=== PATIENT | male | born 1955 | race Caucasian/White ===

== ENCOUNTER 2017-10-02 10:44 | Emergency (ER) | payer MEDICARE, SELFPAY ==
[2017-10-02 10:45] VITALS: BP 152/118; PULSE 110; RESP 18; TEMP 36.6; O2SAT 98; BMI 22.8
--- NOTE | 2017-10-02 11:03 | RAD_ITS ---
STUDY: X-RAY - RIGHT ANKLE REASON FOR EXAM: Male, 62 years old. Injury, pain and swelling. TECHNIQUE: 3 view(s) of the ankle. COMPARISON: None. FINDINGS: There is an oblique slightly displaced appears to be comminuted fracture of the distal fibula. There is a transverse nondisplaced fracture of the medial malleolus. There is fracture of the posterior distal tibia seen only on the lateral view. Normal tibiotalar articulation and ankle mortise. Normal visualized talus and calcaneus. The visualized subtalar, talonavicular, calcaneocuboid and tarsal articulations are normal. There is mild soft tissue swelling. RAD/Ankle min 3 Views IMPRESSION: Trimalleolar fractures as described above. Electronically Signed: Tony Ang MD at 11:19 EST Tel , Service support ,
--- NOTE | 2017-10-02 11:25 | ED.VISSUMM ---
- ER Visit Summary Date of Service: 10/02/17 Chief Complaint: [Injury right ankle] History of Present Illness: The patient is a 62 M [presents with an injury to the right ankle after sustaining a fall this morning. Patient states that he stepped outside to throw some coffee grounds into the mulch bed when he slipped on a wet rug and fell. Patient is able to bear some weight but very painful. Patient did drive himself in and ambulated to the department. Patient also sustained abrasions to his left forearm and right knee. Patient is up-to-date on tetanus.] Physical Examination: [HEENT-PERRLA, EOMI. Cranial nerves II through XII grossly intact. TMs clear. Mucous membranes moist. No adenopathy. Cardiovascular-regular rate and rhythm without murmur or ectopy Lungs-clear to auscultation, chest wall stable without crepitus or subcu emphysema Abdomen-normoactive bowel sounds, soft, nontender, no rebound or rigidity, no peritoneal signs. Extremities-intact ?4, normal range of motion, normal pulses. Patient has superficial abrasions left forearm without bony tenderness. Patient has an abrasion to his right knee infrapatellar that is slightly tender but no bony tenderness. Patient has obvious soft tissue swelling and deformity to the right ankle. There is ecchymosis and bruising. He has no pain at the base of the fifth metatarsal or proximal fibular head. Test Results: [X-rays of the right ankle obtained showed trimalleolar fracture.] Emergency Department Course and Treatment: [Patient was placed in a short leg splint and case was discussed with Dr. Levi Baez who is on-call for orthopedics.] Treatment Plan: [Patient will be given crutches and a prescription for [place] for pain] Disposition: [Discharge to home in stable condition. Patient advised to ice and elevate the extremity. Patient advised to return if worsening pain increase swelling, or condition should worsen in any way.] Impression: [Trimalleolar fracture of the right ankle status post mechanical fall Abrasions left forearm Abrasion right knee] This note was generated with [employer] software. It may contain incorrect words, spelling, and punctuation that were not noted in review of the chart prior to signing ED Disposition - Plan for ED Patient: Chief Complaint: Lower Extremity Injury
--- NOTE | 2017-10-02 11:31 | ED.DCSUM_ITS ---
- ER Visit Summary Date of Service: 10/02/17 Chief Complaint: [Injury right ankle] History of Present Illness: The patient is a 62 M [presents with an injury to the right ankle after sustaining a fall this morning. Patient states that he stepped outside to throw some coffee grounds into the mulch bed when he slipped on a wet rug and fell. Patient is able to bear some weight but very painful. Patient did drive himself in and ambulated to the department. Patient also sustained abrasions to his left forearm and right knee. Patient is up-to-date on tetanus.] Physical Examination: [HEENT-PERRLA, EOMI. Cranial nerves II through XII grossly intact. TMs clear. Mucous membranes moist. No adenopathy. Cardiovascular-regular rate and rhythm without murmur or ectopy Lungs-clear to auscultation, chest wall stable without crepitus or subcu emphysema Abdomen-normoactive bowel sounds, soft, nontender, no rebound or rigidity, no peritoneal signs. Extremities-intact ?4, normal range of motion, normal pulses. Patient has superficial abrasions left forearm without bony tenderness. Patient has an abrasion to his right knee infrapatellar that is slightly tender but no bony tenderness. Patient has obvious soft tissue swelling and deformity to the right ankle. There is ecchymosis and bruising. He has no pain at the base of the fifth metatarsal or proximal fibular head. Test Results: [X-rays of the right ankle obtained showed trimalleolar fracture.] Emergency Department Course and Treatment: [Patient was placed in a short leg splint and case was discussed with Dr. Levi Baez who is on-call for orthopedics.] Treatment Plan: [Patient will be given crutches and a prescription for [place] for pain] Disposition: [Discharge to home in stable condition. Patient advised to ice and elevate the extremity. Patient advised to return if worsening pain increase swelling, or condition should worsen in any way.] Impression: [Trimalleolar fracture of the right ankle status post mechanical fall Abrasions left forearm Abrasion right knee] This note was generated with [employer] software. It may contain incorrect words, spelling, and punctuation that were not noted in review of the chart prior to signing ED Disposition - Plan for ED Patient: Chief Complaint: Lower Extremity Injury
--- NOTE | 2017-10-02 11:33 | DCINST.ED_ITS ---
ED Disposition - Plan for ED Patient: Chief Complaint: Lower Extremity Injury Instructions: ED Fx Ankle General Prescriptions: Hydrocodone Bitart/Apap 5-325 [[place] 5/325] 1 - 2 tab PO Q4H PRN PRN 5 Days #20 tab PRN Reason: Pain Referrals: Oliverio Baez MD [STAFF PHYSICIAN] - 3-5 Days
[2017-10-02] MEDS: HYDROcodone Bitartrate/Apap 5/325 Tablet PO (11:44)
[2017-10-02 11:45] VITALS: BP 163/93; PULSE 81; RESP 15; O2SAT 95
== END 2017-10-02 11:58 | disposition home or self-care (01) ==
PROVIDERS: Emergency Provider Emergency Medicine
DX: S82.851A Displaced trimalleolar fracture of right lower leg, initial encounter for closed fracture (principal); S50.812A Abrasion of left forearm, initial encounter; S80.211A Abrasion, right knee, initial encounter; W01.0XXA Fall on same level from slipping, tripping and stumbling without subsequent striking against object, initial encounter; Y93.9 Activity, unspecified; Y92.9 Unspecified place or not applicable; Y99.9 Unspecified external cause status; J44.9 Chronic obstructive pulmonary disease, unspecified; M19.90 Unspecified osteoarthritis, unspecified site
CPT/HCPCS: 29515; 73610; 99284

== ENCOUNTER → 2023-11-05 | Outpatient (CLI) | payer OTHER, SELFPAY ==
--- NOTE | 2023-11-05 15:48 | CT_ITS ---
STUDY: CT Chest W/O Contrast Injection 11/07/2023 7:24 PM REASON FOR EXAM: Male, 68 years old. SOB COUGH Individualized dose optimization techniques were used for this CT. TECHNIQUE: Transaxial imaging was performed without contrast material. COMPARISON: None. FINDINGS: There are degenerative changes of the shoulders. There is no pneumothorax. There is no demonstrated pleural abnormality. Pulmonary emphysema. No discrete nodules. There are calcifications of the coronary arteries. Normal mediastinum. Normal hilar regions. Normal pulmonary arteries. There is atherosclerotic calcification of the aortic arch with tortuosity and elongation of the aortic arch and descending thoracic aorta. There are multi-level degenerative changes of the thoracic spine. There are no acute findings of the upper abdomen. CT/Chest without Contrast IMPRESSION: There are calcifications of the coronary arteries. Electronically Signed: Isidoro Dixon MD at 19:26 EDT ,
== END | disposition home or self-care (01) ==
LOC: CT 15:48
DX: R06.02 Shortness of breath (principal); J44.9 Chronic obstructive pulmonary disease, unspecified; R05.9 Cough, unspecified
CPT/HCPCS: 71250

== ENCOUNTER 2025-02-03 22:11 | Emergency (ER) | payer OTHER, SELFPAY ==
[2025-02-03 22:13] VITALS: BP 195/119; PULSE 92; RESP 15; TEMP 36.9; O2SAT 94; BMI 25.7
[2025-02-03 22:16] VITALS: BP 195/119; PULSE 101; RESP 15; TEMP 36.9; O2SAT 94
--- NOTE | 2025-02-03 22:36 | CT_ITS ---
PROCEDURE: ABDOMEN/PELVIS W IV CONT ONLY 02/03/2025 REASON FOR EXAM: LLQ PAIN TECHNIQUE: ABDOMEN/PELVIS W IV CONT ONLY Coronal and Sagittal reconstruction series were provided. CONTRAST: Isovue 370 VOLUME: 100 mL One or more dose reduction techniques were used (e.g., Automated exposure control, adjustment of the mA and/or kV according to patient size, use of iterative reconstruction technique. RADIATION DOSE SUMMARY: DLP: 434 mGycm COMPARISON: None. FINDINGS: Lung bases: Bibasilar emphysema with scattered areas of scarring. Right lower lobe ground-glass opacities. Bibasilar pulmonary nodules, greatest in the right lower lobe. Liver: The liver is normal in size without suspicious hepatic mass. The major portal veins are patent. No biliary ductal dilation. Gallbladder: No radiopaque stones within the gallbladder. Spleen: Normal size. Pancreas: Unremarkable. Adrenals: Bilateral adrenal hyperplasia. No discrete nodule. Kidneys: Nonobstructing right renal calculus. Obstructing stone within the left mid ureter at the crossing of the vessels, measuring 0.6 cm (coronal image 72). Mild left hydroureteronephrosis with delayed nephrogram. Bladder: Distended and unremarkable. Reproductive Organs: Dystrophic calcifications within the prostate. Bowel: The bowel loops are nondilated. No ascites or pneumoperitoneum. Normal appendix. Lymph nodes: No suspicious lymph node enlargement. Vasculature: Severe mixed calcific plaque of the aortoiliac vessels. Bones: Thoracolumbar spondylosis with scoliosis of the lumbar spine. CT/Abdomen/Pelvis W IV Cont ONLY IMPRESSION: 1. Obstructing stone within the left mid ureter with mild hydroureteronephrosis and delayed nephrogram. 2. Ground-glass opacities within the right lower lobe, which may reflect pneumo nitis/pneumonia. Clinical correlation recommended. 3. Bibasilar pulmonary nodules. Follow-up with outpatient private inquiry agent recomm ended if not currently performed. Reading Location: [id number]
--- OUTSIDE RECORDS SUMMARY | 2025-02-03 22:42 | XMS RPT_ITS | CCD ---
Author Organization [facility] Care Team Providers Care Correctional Security Officer Name Role Phone CIERA LAMAR Unavailable Unavailable [facility] Primary Care Physician [facility] Primary Care Unavailable LASHAWN SULTANA Attending Unavailable GEOVANNA BALL Attending Unavailable GEOVANNA BALL Referring [facility] Unavailable Allergies Allergy Classification Reported Allergen(s) Allergy Type Date of Onset Reaction(s) Facility (1 source) Codeine Drug Allergy 10-02-2017 [facility] Repository (1 source) Codeine Drug Allergy 10-02-2017 Other [facility] Medications Current Medications Medication Drug Class(es) Dates Sig (Normalized) Sig (Original) acetaminophen 325 mg / HYDROcodone bitartrate 5 mg oral tablet (1 source) Opioid Agonist Start: 10-02-2017 take 1 tablet by mouth every four hours as needed Hydrocodone-Aceta minophen Active 1 - 2 TABLET PO EVERY 4 HOURS NEEDED 20 October 02, 2017 1:00am Problems Problem Classification Problem Date Documented Da te Episodic/Chronic Other lower respiratory disease (1 source) Other nonspecific abnormal finding of lung field; Translations: [Other nonspecific abnormal finding of lung field] Onset: 11-05-2023 Episodic Unclassified (1 source) Unknown / UNK(Unknown) Onset: 05-19-2017 Results Test Name Value Interpretation Reference Range Facility Chest without Contraston Chest without Contrast [facility] [address] [place] [address] Chest without Contrast MR#: [id number] Acct: [id number] Name: LOPEZ ROY III Rep #: [id number] : 1955 M 68 From: Isidoro Hamilton PCP: [place] Hospital Status: REG CLI Study: Chest without Contrast Date of Exam: 11/05/23 Exam# [id number] Ordering Dr: LUCRECIA RAMAN :[id number] STUDY: CT Chest W/O Contrast Injection 11/07/2023 7:24 PM REASON FOR EXAM: Male, 68 years old. SOB COUGH Individualized dose optimization techniques were used for this CT. TECHNIQUE: Transaxial imaging was performed without contrast material. COMPARISON: None. FINDINGS: There are degenerative changes of the shoulders. There is no pneumothorax. There is no demonstrated pleural abnormality. Pulmonary emphysema. No discrete nodules. There are calcifications of the coronary arteries. Normal mediastinum. Normal hilar regions. Normal pulmonary arteries. There is atherosclerotic calcification of the aortic arch with tortuosity and elongation of the aortic arch and descending thoracic aorta. There are multi-level degenerative changes of the thoracic spine. There are no acute findings of the upper abdomen. CT/Chest without Contrast IMPRESSION: There are calcifications of the coronary arteries. Electronically Signed: Isidoro Dixon MD at 19:26 EDT Reading Location ID and State: [facility] / [place] , Service support , CC: LUCRECIA RAMAN; [facility] Roller Picker: Signed Normal [facility] .Auto Diffon 10-12-2022 Basophil, Absolute 0.1 10 3/mcL Normal 0.0-0.3 Pending sale to [facility] ([place]) Comment on above: Performed By: #### A DIFF, BMP, CBC, GFR, CLAUDIA CLEMENTE MDW #### [facility] [address] [place] [address] Basophils/100 WBC (Bld) 0.6 % Normal 0.0-2.5 [facility] ([place]) Comment on above: Performed By: #### A DIFF, BMP, CBC, GFR, CLAUDIA CLEMENTE MDW #### [address] [address] Eosinophil, Absolute 0.1 10 3/mcL Normal 0.0-0.7 [facility] ([place]) Comment on above: Performed By: #### A DIFF, BMP, CBC, GFR, ANEUCLAUDIA MDW #### [address] [address] Eosinophils/100 WBC (Bld) 1.0 % Normal 0.0-6.0 [facility] ([place]) Comment on above: Performed By: #### A DIFF, BMP, CBC, GFR, CLAUDIA CLEMENTE MDW #### [address] [address] Lymphocyte, Absolute 0.5 10 3/mcL Low 0.9-4.3 [facility] ([place]) Comment on above: Performed By: #### A DIFF, BMP, CBC, GFR, CLAUDIA CLEMENTE MDW #### [address] [address] Lymphocytes/100 WBC (Bld) 5.9 % Low 20.0-40.0 [facility] ([place]) Comment on above: Performed By: #### A DIFF, BMP, CBC, GFR, CLAUDIA CLEMENTE MDW #### [address] [address] Monocyte, Absolute 0.8 10 3/mcL Normal 0.1-1.4 Pending sale to [facility] ([place]) Comment on above: Performed By: #### A DIFF, BMP, CBC, GFR, CLAUDIA CLEMENTE MDW #### [address] [address] Monocytes/100 WBC (Bld) 8.5 % Normal 2.0-13.0 [facility] ([place]) Comment on above: Performed By: #### A DIFF, BMP, CBC, GFR, CLAUDIA CLEMENTE MDW #### [address] [address] Neutrophils/100 WBC (Bld) 84.0 % High 50.0-75.0 [facility] ([place]) Comment on above: Performed By: #### A DIFF, BMP, CBC, GFR, CLAUDIA CLEMENTE MDW #### [address] [address] .GFRon 10-12-2022 GFR >60 Normal [facility] ([place]) Comment on above: Result Comment: GFR Population mean for , Non- Americans Ages 20-29 = 116 mL/min/1.73 sq.m. Ages 30-39 = 107 mL/min/1.73 sq.m. Ages 40-49 = 99 mL/min/1.73 sq.m. Ages 50-59 = 93 mL/min/1.73 sq.m. Ages 60-69 = 85 mL/min/1.73 sq.m. Ages 70+ = 75 mL/min/1.73 sq.m. Chronic Kidney Disease: Less than 60 mL/min/1.73 square meters End Stage Renal Disease: Less than 15 mL/min/1.73 square meters Performed By: #### A DIFF, BMP, CBC, GFR, CLAUDIA CLEMENTE MDW #### [place] [address] GFR Non- >60 Normal [facility] ([place]) Comment on above: Result Comment: GFR Population mean for , Non- Americans Ages 20-29 = 116 mL/min/1.73 sq.m. Ages 30-39 = 107 mL/min/1.73 sq.m. Ages 40-49 = 99 mL/min/1.73 sq.m. Ages 50-59 = 93 mL/min/1.73 sq.m. Ages 60-69 = 85 mL/min/1.73 sq.m. Ages 70+ = 75 mL/min/1.73 sq.m. Chronic Kidney Disease: Less than 60 mL/min/1.73 square meters End Stage Renal Disease: Less than 15 mL/min/1.73 square meters Performed By: #### A DIFF, BMP, CBC, GFR, CLAUDIA CLEMENTE MDW #### [address] [address] .MDWon 10-12-2022 Monocyte Distribution Width 16.93 Normal 0.00-20.00 [facility] ([place]) Comment on above: Result Comment: For ED adult patients suspected of sepsis, MDW<=20.0 does not rule out sepsis or risk of sepsis Performed By: #### A DIFF, BMP, CBC, GFR, CLAUDIA CLEMENTE MDW #### [address] [address] .NEUABSon 10-12-2022 Neutrophil, Absolute 7.6 10 3/mcL Normal 2.3-8.1 [facility] ([place]) Comment on above: Performed By: #### A DIFF, BMP, CBC, GFR, CLAUDIA CLEMENTE MDW #### [place] [address] BMPon 10-12-2022 BUN/Creatinine Ratio 20.0 ratio Normal 10.0-22.0 [facility] ([place]) Comment on above: Performed By: #### A DIFF, BMP, CBC, GFR, CLAUDIA CLEMENTE MDW #### [place] [address] Calcium [Mass/Vol] 10.2 mg/dL Normal 8.7-10.4 [facility] ([place]) Comment on above: Performed By: #### A DIFF, BMP, CBC, GFR, CLAUDIA CLEMENTE MDW #### [place] [address] Chloride [Moles/Vol] 103 mmol/L Normal 98-110 [facility] ([place]) Comment on above: Performed By: #### A DIFF, BMP, CBC, GFR, CLAUDIA CLEMENTE MDW #### [place] [address] CO2 [Moles/Vol] 29 mmol/L Normal 22-32 [facility] ([place]) Comment on above: Performed By: #### A DIFF, BMP, CBC, GFR, CLAUDIA CLEMENTE MDW #### [place] [address] Creatinine [Mass/Vol] 0.80 mg/dL Normal 0.60-1.40 [facility] ([place]) Comment on above: Performed By: #### A DIFF, BMP, CBC, GFR, CLAUDIA CLEMENTE MDW #### [address] [address] Electrolyte Balance 9.0 mEq/L Normal 4.0-15.0 [facility] ([place]) Comment on above: Performed By: #### A DIFF, BMP, CBC, GFR, CLAUDIA CLEMENTE MDW #### [address] [address] Glucose [Mass/Vol] 96 mg/dL Normal 82-115 [facility] ([place]) Comment on above: Performed By: #### A DIFF, BMP, CBC, GFR, CLAUDIA CLEMENTE MDW #### [address] [address] Potassium [Moles/Vol] 3.6 mmol/L Normal 3.5-5.0 [facility] ([place]) Comment on above: Performed By: #### A DIFF, BMP, CBC, GFR, CLAUDIA CLEMENTE MDW #### [place] [id number] Sodium [Moles/Vol] 141 mmol/L Normal 136-145 [facility] ([place]) Comment on above: Performed By: #### A DIFF, BMP, CBC, GFR, CLAUDIA CLEMENTE MDW #### [address] [address] Urea nitrogen [Mass/Vol] 16.0 mg/dL Normal 8.0-22.0 [facility] ([place]) Comment on above: Performed By: #### A DIFF, BMP, CBC, GFR, CLAUDIA CLEMENTE MDW #### [address] [address] CBCon 10-12-2022 Erythrocyte distribution width (RBC) [Ratio] 13.8 % Normal 11.5-15.5 [facility] ([place]) Comment on above: Performed By: #### A DIFF, BMP, CBC, GFR, CLAUDIA CLEMENTE MDW #### [address] [address] Hematocrit (Bld) [Volume fraction] 44.9 % Normal 40.0-52.0 [facility] ([place]) Comment on above: Performed By: #### A DIFF, BMP, CBC, GFR, CLAUDIA CLEMENTE MDW #### [place] [address] Hgb 15.0 G/dL Normal 13.0-17.5 [facility] ([place]) Comment on above: Performed By: #### A DIFF, BMP, CBC, GFR, CLAUDIA CLEMENTE MDW #### [place] [address] MCH (RBC) [Entitic mass] 29.5 pg Normal 27.0-33.0 [facility] ([place]) Comment on above: Performed By: #### A DIFF, BMP, CBC, GFR, CLAUDIA CLEMENTE MDW #### [place] [address] MCHC 33.4 G/dL Normal 32.0-36.0 [facility] ([place]) Comment on above: Performed By: #### A DIFF, BMP, CBC, GFR, CLAUDIA CLEMENTE MDW #### [place] [address] MCV (RBC) [Entitic vol] 88.2 fL Normal 81.0-100.0 [facility] ([place]) Comment on above: Performed By: #### A DIFF, BMP, CBC, GFR, CALUDIA CLEMENTE MDW #### [place] [address] Platelet 439 10 3/mcL Normal 150-450 [facility] ([place]) Comment on above: Performed By: #### A DIFF, BMP, CBC, GFR, CLAUDIA CLEMENTE MDW #### [place] [address] Platelet mean volume (Bld) [Entitic vol] 6.4 fL Normal 6.4-10.5 [facility] ([place]) Comment on above: Performed By: #### A DIFF, BMP, CBC, GFR, CLAUDIA CLEMENTE MDW #### [place] [address] RBC 5.09 10 6/mcL Normal 4.50-6.00 [facility] ([place]) Comment on above: Performed By: #### A DIFF, BMP, CBC, GFR, ANEU, AZIZA TAYLOR #### [place] [address] WBC 9.1 10 3/mcL Normal 4.5-10.8 [facility] ([place]) Comment on above: Performed By: #### A DIFF, BMP, CBC, GFR, ANEU, AZIZA TAYLOR #### [place] [address] CVFLURVon 10-12-2022 FLU A PCR Negative Normal Negative [facility] ([place]) Comment on above: Result Comment: Note s Performed By: #### C VFLURV #### [place] [address] FLU B PCR Negative Normal Negative [facility] ([place]) Comment on above: Result Comment: Note s Performed By: #### C VFLURV #### [place] [address] RSV PCR Negative Normal Negative [facility] ([place]) Comment on above: Result Comment: Note s Performed By: #### C VFLURV #### [place] [address] SARS-CoV-2 (COVID-19) RNA RICK+probe Ql (Unsp spec) Negative Normal Negative [facility] ([place]) Comment on above: Result Comment: Note s This test has been authorized by FDA under an EUA for use by authorized laboratories and has not been FDA cleared or approved. Results from the Xpert Xpress SARS-CoV-2/Flu/RSV or Xpert Xpress SARS-CoV-2 only test should be correlated with the clinical history, epidemiological data, and other data available to the clinician evaluating the patient. Performance of the Xpert Xpress SARS-CoV-2/Flu/RSV or Xpert Xpress SARS-CoV-2 only test has only been established in nasopharyngeal swab specimens. Erroneous test results might occur from improper specimen collection; failure to follow the recommended sample collection, handling, and storage procedures; technical error; or sample mix-up.False negative results may occur if virus is present at levels below the analytical limit of detection. Viral nucleic acid may persist in vivo, independent of virus viability. Detection of analyte target(s) does not imply that the corresponding virus(es) are infectious or are the causative agents for clinical symptoms.Recent patient exposure to FluMist or other live attenuated influenza vaccines may cause inaccurate positive results. Performed By: #### C VFLURV #### [place] [address] LABORATORYOrdered By: SYSTEM SYSTEM on 10-12-2022 Basophils (Bld) [#/Vol] 0.1 103/mcL Invalid Interpretation Code 0.0 - 0.3 10^3/mcL AH Workflow SS Basophils/100 WBC (Bld) 0.6 % Invalid Interpretation Code 0.0 - 2.5 % AH Workflow SS Calcium [Mass/Vol] 10.2 mg/dL Invalid Interpretation Code 8.7 - 10.4 mg/dL ADM SS Chloride [Moles/Vol] 103 mmol/L Invalid Interpretation Code 98 - 110 mEq/L ADM SS CO2 [Moles/Vol] 29 mmol/L Invalid Interpretation Code 22 - 32 mEq/L ADM SS Creatinine [Mass/Vol] 0.80 mg/dL Invalid Interpretation Code 0.60 - 1.40 mg/dL ADM SS Electrolyte Balance 9.0 mEq/L Invalid Interpretation Code 4.0 - 15.0 mEq/L ADM SS Eosinophils (Bld) [#/Vol] 0.1 103/mcL Invalid Interpretation Code 0.0 - 0.7 10^3/mcL AH Workflow SS Eosinophils/100 WBC (Bld) 1.0 % Invalid Interpretation Code 0.0 - 6.0 % AH Workflow SS Erythrocyte distribution width (RBC) [Ratio] 13.8 % Invalid Interpretation Code 11.5 - 15.5 % AH Workflow SS GFR/1.73 sq M.predicted among blacks MDRD (S/P/Bld) [Vol rate/Area] ml/min/1.73sqm Invalid Interpretation Code ADM SS GFR/1.73 sq M.predicted among non-blacks MDRD (S/P/Bld) [Vol rate/Area] ml/min/1.73sqm Invalid Interpretation Code ADM SS Glucose [Mass/Vol] 96 mg/dL Invalid Interpretation Code 82 - 115 mg/dL ADM SS Hematocrit (Bld) [Volume fraction] 44.9 % Invalid Interpretation Code 40.0 - 52.0 % AH Workflow SS Hemoglobin (Bld) [Mass/Vol] 15.0 G/dL Invalid Interpretation Code 13.0 - 17.5 G/dL AH Workflow SS Lymphocytes (Bld) [#/Vol] 0.5 103/mcL Invalid Interpretation Code 0.9 - 4.3 10^3/mcL AH Workflow SS Lymphocytes/100 WBC (Bld) 5.9 % Invalid Interpretation Code 20.0 - 40.0 % AH Workflow SS MCH (RBC) [Entitic mass] 29.5 pg Invalid Interpretation Code 27.0 - 33.0 pg AH Workflow SS MCHC 33.4 G/dL Invalid Interpretation Code 32.0 - 36.0 G/dL AH Workflow SS MCV (RBC) [Entitic vol] 88.2 fL Invalid Interpretation Code 81.0 - 100.0 fL AH Workflow SS Monocyte distribution width Auto (Bld) [Entitic vol] 16.93 Invalid Interpretation Code 0.00 - 20.00 AH Workflow SS Comment on above: Result Comment: For ED adult patients suspected of sepsis, MDW<=20.0 does not rule out sepsis or risk of sepsis Monocytes (Bld) [#/Vol] 0.8 103/mcL Invalid Interpretation Code 0.1 - 1.4 10^3/mcL AH Workflow SS Monocytes/100 WBC (Bld) 8.5 % Invalid Interpretation Code 2.0 - 13.0 % AH Workflow SS Neutrophils (Bld) [#/Vol] 7.6 103/mcL Invalid Interpretation Code 2.3 - 8.1 10^3/mcL AH Workflow SS Neutrophils/100 WBC (Bld) 84.0 % Invalid Interpretation Code 50.0 - 75.0 % AH Workflow SS Platelet mean volume (Bld) [Entitic vol] 6.4 fL Invalid Interpretation Code 6.4 - 10.5 fL AH Workflow SS Platelets (Bld) [#/Vol] 439 103/mcL Invalid Interpretation Code 150 - 450 10^3/mcL AH Workflow SS Potassium [Moles/Vol] 3.6 mmol/L Invalid Interpretation Code 3.5 - 5.0 mEq/L AH ADM SS RBC (Bld) [#/Vol] 5.09 106/mcL Invalid Interpretation Code 4.50 - 6.00 10^6/mcL AH Workflow SS Sodium [Moles/Vol] 141 mmol/L Invalid Interpretation Code 136 - 145 mEq/L AH ADM SS Troponin I.cardiac DL <= 0.01 ng/mL [Mass/Vol] 3.92 ng/L Invalid Interpretation Code 0.00 - 54.00 ng/L ADM SS Urea nitrogen [Mass/Vol] 16.0 mg/dL Invalid Interpretation Code 8.0 - 22.0 mg/dL ADM SS Urea nitrogen/Creatinine [Mass ratio] 20.0 ratio Invalid Interpretation Code 10.0 - 22.0 ratio ADM SS WBC (Bld) [#/Vol] 9.1 103/mcL Invalid Interpretation Code 4.5 - 10.8 10^3/mcL Workflow SS LABORATORYOrdered By: Regine sandra on 10-12-2022 FLUAV RNA RICK+probe Ql (Resp) Negative 3 (10/12/22 5:20 PM) Invalid Interpretation Code Negative Auto Viro/Sero SS Comment on above: Result Comment: Note s FLUBV RNA RICK+probe Ql (Resp) Negative 4 (10/12/22 5:20 PM) Invalid Interpretation Code Negative Auto Viro/Sero SS Comment on above: Result Comment: Note s RSV PCR Negative 5 (10/12/22 5:20 PM) Invalid Interpretation Code Negative Auto Viro/Sero SS Comment on above: Result Comment: Note s SARS-CoV-2 (COVID-19) RNA RICK+probe Ql (Resp) Negative 2 (10/12/22 5:20 PM) Invalid Interpretation Code Negative Auto Viro/Sero SS Comment on above: Result Comment: Note s TROPHSon 10-12-2022 Troponin I High Sensitivity 3.92 ng/L Normal 0.00-54.00 [facility] ([place]) Comment on above: Result Comment: If t he High Sensitive Troponin result is below the 99th percentile value (<45 ng/L) at the first blood draw, at least two additional blood samples should be drawn before results are interpreted as negative for AMI. Performed By: #### A DIFF, BMP, CBC, GFR, ANEU, AZIZA TAYLOR #### [address] [address] XR CHEST 1 VIEWon 10-12-2022 XR CHEST 1 VIEW ORIGINAL EXAMINATION: ONE XRAY VIEW OF THE CHEST TECHNIQUE: AP upright COMPARISON: None HISTORY: ORDERING SYSTEM PROVIDED HISTORY: Reason for Exam: chest pain FINDINGS: Support devices: None Cardiomediastinal: The heart is normal in size. Lungs: Mild pulmonary hyperinflation likely on the basis of upper lobe predominant emphysema. Bilateral lower lobe parenchymal opacities without consolidation noted. No evidence of pulmonary edema or a pleural effusion. Pneumothorax: None. Osseous: No acute osseous pathology. IMPRESSION: Bilateral lower lobe parenchymal opacities. In the absence of prior imaging studies considerations include acute (infectious/inflammatory) and chronic change (fibrosis and/or interstitial lung disease). Emphysema. Interpreted by: Farhad Armando MD Preliminary Report By: Farhad Armando MD Electronically signed By Farhad Armando MD Dictated Date: 10/12/2022 3:21:37 PM Prelim Date: 10/12/2022 3:23:33 PM Sign Date: 10/12/2022 3:23:33 PM Ordering Provider: LASHAWN Block [facility] ([place]) CNOVon 05-19-2017 CN Office Visit (FAMPWS) ----LOPEZ ROY ([id number]) 1955 [facility] Time Provider [id number]/11/17 2:00 PM [facility] During your visit today, we recorded the following information about you: Pulse Respiration Blood pressure Weight 80/minute 14/minute 134/95 68 kg Height 1.715 Nav Lamar MD 05/19/2017 5:52 PM SignedWelcome To Medicare VisitMedical B eligibility date not able to findDate of last exam [place] MEDICAL HISTORYDiagnosis Date- COPD (chronic obstructive pulmonary disease) (HCC) 05/11/2017- Scoliosis 1974PAST SURGICAL HISTORYProcedure Laterality Date- COLONOSCOPY 2014 repeat 10 years- HERNIA REPAIR W/MESH Left- TENDON TRANSFER WITH GRAFT RightCodeineMedications reviewed: YesFAMILY HISTORYProblem Relation Age of Onset- Cancer Father- Diabetes Sister- Kidney Disease BrotherSOCIAL HISTORY:Social History Marital status: Spouse name: Years of education: Number of children:Social History Main Topics Smoking status: Former Smoker Packs/day: 0.00 Years: 0.00 Quit date: 02/14/2016 Drug use: Marcia works out regularly 7 times per week with walking. He watches his dietfor sodium, low fat and low cholesterol most of the time.List of current specialists seen:See VAEnd of Live Planning discussed including patients advanced directive wishes: Katie am willing to follow Lopez's advanced directives.Depression screenHe in the past two weeks denies having felt down, depressed, hopeless or withlittle interest or pleasure in doing things.Functional Ability/Safety Screen1. Was the patient's timed Up and Go test unsteady or longer than 30 seconds?No2. Does the patient need help with the phone, transportation,shopping,prep aring meals, housework, laundry, medications or managing money? No With back has some problems.3. Does your home have rugs in the hallway, lack of grab bars in the bathroom(y), lack of handrails on the stairs or have poor lighting? NoHearing Evaluation: normalPHYSICAL EXAMBP 148/95 Pulse 80 Resp 14 Ht 171.5 cm (5' 7.5ANDquot;) Wt 68 kg (150 lb) BMI 23.15 kg/i4Jhgcd and oriented X 3: YESBody mass index is 23.15 kg/(m2).Sees OpthoSee belowASSESSMENT/PLAN:61 year old maleThe following prevention plan was discussed during the office visit andprovided to the patient:See belowNate Bauer ComplaintPatient presents with:Establish Care: physicalHPLucila Alfonso Roy is a 61 year old male who presents here today forestablishment of care with extensive exam.Patient with Hx as documented below and reviewed. No issuesPast medical history, appointments, medications, allergies reviewed.Previous Medical HistoryPAST MEDICAL HISTORYDiagnosis Date- COPD (chronic obstructive pulmonary disease) (HCC) 05/11/2017- Ex-smoker 05/19/2017 Started age 16 up to 1 PPD quit at age 60- Scoliosis 1974Previous Surgical HistoryPAST SURGICAL HISTORYProcedure Laterality Date- COLONOSCOPY 2014 repeat 10 years- HERNIA REPAIR W/MESH Left- TENDON TRANSFER WITH GRAFT RightFamily HistoryFAMILY HISTORYProblem Relation Age of Onset- Cancer Father- Diabetes Sister- Kidney Disease BrotherPatient AllergiesALLERGIESAllergen Reactions- Codeine Other: See Comments Shaky, mental status changesCurrent MedicationsNo current outpatient prescriptions on file prior to visit.No current facility-administered medications on file prior to visit.Social HistorySocial History Marital status: Spouse name: Years of education: Number of children:Social History Main Topics Smoking status: Former Smoker Packs/day: 0.00 Years: 0.00 Quit date: 02/14/2016 Drug use: NoReview of SymptomsREVIEW OF SYSTEMSGENERAL: No weight loss, malaise or feversHEENT: Negative for frequent or significant headaches, significant change invision, significant vision problems, significant ear problems or hearing loss,nasal discharge, or nose bleeds, sore throat, difficulty swallowing, mouthlesions, hoarsenessNECK: Negative for lumps, goiter, pain and significant neck swellingRESPIRATORY: Negative for cough, hemoptysis. Breathing has been stable.CARDIOVASCULAR: Negative for chest pain, hypertension, CHF or palpitations.Occasional swelling in legs but resolves.GI: No nausea, vomiting, or frequent diarrhea, No heartburn or reflux symptomsand bloodGU: No history of dysuria, or bloodMUSCULOSKELETAL: has pain in the lower back and has been developing some painsin the hips.SKIN: Negative for lesions, rash, and itchingPSYCH: Negative for sleep disturbance, mood disorder and recent psychosocialstressorsHEMATOL OGY/LYMPHOLOGY: Negative for prolonged bleeding, bruising easily orswollen nodesENDOCRINE: Negative for cold or heat intolerance, polyuria, polydipsia andgoiterNEURO: No history of headaches, syncope, paralysis, seizures or tremorsEXAM:BP 148/95 Pulse 80 Resp 14 Ht 171.5 cm (5' 7.5ANDquot;) Wt 68 kg (150 lb) BMI 23.15 kg/k0Hassqay Appearance: Well appearing, alert, in no acute distress, well-hydrated,well nourished..Skin: Skin color, texture, turgor normal, no suspicious rashes or lesions.Head: Normocephalic, no masses, lesions, tenderness or abnormalities.Eyes: Anicteric sclera. Pupils are equally round and reactive to light.Extraocular movements are intact. .Ears: External ears normal, canals clear.Nose/Sinuses: Nares normal, septum midline, mucosa normal, no drainage or sinustenderness.Oropharynx: Lips, mucosa, and tongue normal, gums normal, oropharynx normal.Poor dietitian.Neck: Supple, no adenopathy; thyroid symmetric, normal size, no bruits.Lungs: Lungs clear to auscultation. No wheezing, rhonchi, rales, distant breathsounds throughout..Heart: RRR without murmur, gallop, or rubs. No ectopy.Abdomen: Normal abdominal exam, Abdomen soft, non-tender. Bowel sounds normal.No masses, organomegaly.Extremities: No deformities, edema, skin discoloration.Musculoskeleta l: Spine range of motion normal. Muscular strength intact, Nojoint swelling, deformity, or tenderness.Peripheral Pulses: Normal.Neurologic: Gait normal. Reflexes normal and symmetric. Sensation to lighttouch and crainal nerves 2-12 intact..Genitalia: Normal, Penis normal. No urethral discharge. Scrotum normal topalpation. No hernia. circumcised.Rectal: Normal exam. Prostate enlarged but firm smooth capsule.Health Maintenance ListTETANUS due on 1966LIPID SCREEN due on 1990HEPATITIS C SCREENING due on 1999DIABETES SCREEN due on 2000PROSTATE CANCER SCREENING DISCUSSION due on 2005ZOSTAVAX due on 2015COLORECTAL CANCER SCREENING,SEE MODIFIER due on 01/10/2024INFLCLAIRE CompletedData reviewedA/P(Z00.00) Medicare annual wellness visit, subsequent (primary encounterdiagnosis)Comment:P [place]: see below(J44.9) Chronic obstructive pulmonary disease, unspecified COPD type (HCC)Comment:Plan: patient to cont inhalers and f[facility] with [facility](M41.9) Scoliosis of lumbosacral spine, unspecified scoliosis typeComment:Plan: stable.(Z87.891) Ex-smokerComment:Plan: patient to continue to abstain.(N40.0) Benign prostatic hyperplasia without lower urinary tract symptomsComment:Plan: no clinically stable(Z13.6) Encounter for screening for cardiovascular disordersComment:Plan: check LIPID PANEL BASIC(Z13.1) Encounter for screening for diabetes mellitusComment:Plan: check GLUCOSE FASTING BLD(N42.9) Prostate disorderComment:Plan: check PSA/PROSTSPECAG DIAGPatient to f/u 1 year for WAE Time with patient face to face was 30 min for extensive exam and 10 min formedicare wellness.Referring Provider: SELF [[id number]]Allergies As of Date: 05/19/2017 Noted Allergy ReactionCODEINE 05/19/2017 14 - Other: See Comments Comments: Jase mental status changesDate Reviewed: 05/19/2017Reviewed by: Ciera Lamar - Fully AssessedReason for Visit: [facility] [42] Cmt: physicalPrimary Visit Diagnosis:Medicare annual wellness visit, subsequent [Z00.00] Comment:last done: 05/19/2017 Other Visit Diagnoses:Chronic obstructive pulmonary disease, unspecified COPD type (HCC) [J44.9] Scoliosis of lumbosacral spine, unspecified scoliosis type [M41.9] Ex-smoker [Z87.891] Benign prostatic hyperplasia without lower urinary tract symptoms [N40.0] Encounter for screening for cardiovascular disorders [Z13.6] Encounter for screening for diabetes mellitus [Z13.1] Prostate disorder [N42.9]Order(s):diclofenac, EC, (VOLTAREN) 75 mg EC tabletTake 1 tablet by mouth twice daily. For pain/inflammation. Take with food. Per VADisp: Rfl: 0 albuterol HFA (VENTOLIN HFA) 90 mcg/actuation inhalerInhale 2 Puffs as instructed every 4 hours as needed for Wheezing/Shortness of Breath. Per VADisp: 1 InhalerRfl: 0 tiotropium (SPIRIVA WITH HANDIHALER) 18 mcg inhalation capsuleInhale 1 capsule as instructed once daily. Use with handihaler. Per VADisp: Rfl: 0 aspirin, enteric coated (ASPIR-81) 81 mg EC tabletTake 1 tablet by mouth once daily.Disp: Rfl: 0 GLUCOSE FASTING BLD [SQGLF] Order #: [id number] FUTURE LIPID PANEL BASIC [SQLIPB] Order #: [id number] FUTURE PSA/PROSTSPECAG DIAG [SQPSA] Order #: [id number] FUTUREPrescriptions as of 05/19/2017 Sig: DICLOFENAC SODIUM 75 MG TABLE* Take 1 tablet by mouth twice * ALBUTEROL SULFATE HFA 90 MCG/* Inhale 2 Puffs as instructed * TIOTROPIUM BROMIDE 18 MCG CAP* Inhale 1 capsule as instructe* ASPIRIN 81 MG TABLET,DELAYED * Take 1 tablet by mouth once d*Problem List As Of Date 05/19/2017 Noted Resolved COPD (chronic obstructive pulmonary disease) (H*INVALID FOR* Priority: A Scoliosis [M41.9] INVALID FOR* Priority: M Ex-smoker [Z87.891] INVALID FOR* Priority: C More... Medicare annual wellness visit, subsequent [Z00*INVALID FOR* More... Well adult exam [Z00.00] INVALID FOR* More... Encounter for screening for cardiovascular diso*INVALID FOR* Benign prostatic hyperplasia without lower urin*INVALID FOR* Priority: CPrescriptions ordered this encounter Disp Refills Start End DICLOFENAC SODIUM 75 MG TABLET,DELAY* 0 05/19/2017 Class: Med Update Route: ORAL Sig: Take 1 tablet by mouth twice daily. For pain/inflammation. Take with food. Per CA ALBUTEROL SULFATE HFA 90 MCG/ACTUATI* 1 In* 0 05/19/2017 Class: Med Update Route: INHALATION Sig: Inhale 2 Puffs as instructed every 4 hours as needed for Wheezing/Shortness of Breath. Per CA TIOTROPIUM BROMIDE 18 MCG CAPSULE WI* 0 05/19/2017 Class: Med Update Route: INHALATION Sig: Inhale 1 capsule as instructed once daily. Use with handihaler. Per [facility] ASPIRIN 81 MG TABLET,DELAYED RELEASE 0 05/19/2017 Class: Med Update Route: ORAL Sig: Take 1 tablet by mouth once daily.Disposition: Return in about 1 year (around 05/19/2018) for complete PE.Follow-up and Disposition History RecordedClassic SmartForms filed during this visit:Extended VitalsEncounter Number: [id number] Status:Closed by CIERA LAMAR on 05/19/17 [facility] PROGRESSon 05-19-2017 PROGRESS HNO ID: [id number] thor: Ciera Shelton: (none)Author Type: PhysicianType: Progress NotesFiled: 05/19/2017 5:52 PMNote Text:Welcome To Medicare VisitMedical B eligibility date not able to findDate of last exam [place] MEDICAL HISTORYDiagnosis Date- COPD (chronic obstructive pulmonary disease) ([facility]) 05/11/2017- Scoliosis 1974PAST SURGICAL HISTORYProcedure Laterality Date- COLONOSCOPY 2014 repeat 10 years- HERNIA REPAIR W/MESH Left- TENDON TRANSFER WITH GRAFT RightCodeineMedications reviewed: YesFAMILY HISTORYProblem Relation Age of Onset- Cancer Father- Diabetes Sister- Kidney Disease BrotherSOCIAL HISTORY:Social History Marital status: Spouse name: Years of education: Number of children:Social History Main Topics Smoking status: Former Smoker Packs/day: 0.00 Years: 0.00 Quit date: 02/14/2016 Drug use: Marcia works out regularly 7 times per week with walking. He watches hisdiet for sodium, low fat and low cholesterol most of the time.List of current specialists seen:See [facility] Planning discussed including patients advanced directivewishes: Katie am willing to follow Lopez's advanced directives.Depression screenHe in the past two weeks denies having felt down, depressed, hopeless orwith little interest or pleasure in doing things.Functional Ability/Safety Screen1. Was the patient's timed Up and Go test unsteady or longer than 30seconds? No2. Does the patient need help with the phone, transportation,shopping,prep aring meals, housework, laundry, medications or managingmoney? No With back has some problems.3. Does your home have rugs in the hallway, lack of grab bars in thebathroom (y), lack of handrails on the stairs or have poor lighting? NoHearing Evaluation: normalPHYSICAL EXAMBP 148/95 Pulse 80 Resp 14 Ht 171.5 cm (5' 7.5) Wt 68 kg (150 lb) BMI 23.15 kg/s5Mihuf and oriented X 3: YESBody mass index is 23.15 kg/(m2).Sees OpthoSee belowASSESSMENT/PLAN:61 year old maleThe following prevention plan was discussed during the office visit andprovided to the patient:See belowNate Bauer ComplaintPatient presents with:Establish Care: physicalHPIGebarbi Roy is a 61 year old male who presents here today forestablishment of care with extensive exam.Patient with Hx as documented below and reviewed. No issuesPast medical history, appointments, medications, allergies reviewed.Previous Medical HistoryPAST MEDICAL HISTORYDiagnosis Date- COPD (chronic obstructive pulmonary disease) (HCC) 05/11/2017- Ex-smoker 05/19/2017 Started age 16 up to 1 PPD quit at age 60- Scoliosis 1974Previous Surgical HistoryPAST SURGICAL HISTORYProcedure Laterality Date- COLONOSCOPY 2014 repeat 10 years- HERNIA REPAIR W/MESH Left- TENDON TRANSFER WITH GRAFT RightFamily HistoryFAMILY HISTORYProblem Relation Age of Onset- Cancer Father- Diabetes Sister- Kidney Disease BrotherPatient AllergiesALLERGIESAllergen Reactions- Codeine Other: See Comments Damasoky, mental status changesCurrent MedicationsNo current outpatient prescriptions on file prior to visit.No current facility-administered medications on file prior to visit.Social HistorySocial History Marital status: Spouse name: Years of education: Number of children:Social History Main Topics Smoking status: Former Smoker Packs/day: 0.00 Years: 0.00 Quit date: 02/14/2016 Drug use: NoReview of SymptomsREVIEW OF SYSTEMSGENERAL: No weight loss, malaise or feversHEENT: Negative for frequent or significant headaches, significant changein vision, significant vision problems, significant ear problems orhearing loss, nasal discharge, or nose bleeds, sore throat, difficultyswallowing, mouth lesions, hoarsenessNECK: Negative for lumps, goiter, pain and significant neck swellingRESPIRATORY: Negative for cough, hemoptysis. Breathing has been stable.CARDIOVASCULAR: Negative for chest pain, hypertension, CHF orpalpitations. Occasional swelling in legs but resolves.GI: No nausea, vomiting, or frequent diarrhea, No heartburn or refluxsymptoms and bloodGU: No history of dysuria, or bloodMUSCULOSKELETAL: has pain in the lower back and has been developing somepains in the hips.SKIN: Negative for lesions, rash, and itchingPSYCH: Negative for sleep disturbance, mood disorder and recentpsychosocial stressorsHEMATOLOGY/LYMPHOLO GY: Negative for prolonged bleeding, bruising easily orswollen nodesENDOCRINE: Negative for cold or heat intolerance, polyuria, polydipsia andgoiterNEURO: No history of headaches, syncope, paralysis, seizures or tremorsEXAM:BP 148/95 Pulse 80 Resp 14 Ht 171.5 cm (5' 7.5) Wt 68 kg (150 lb) BMI 23.15 kg/b1Mptyrht Appearance: Well appearing, alert, in no acute distress,well-hydrated, well nourished..Skin: Skin color, texture, turgor normal, no suspicious rashes or lesions.Head: Normocephalic, no masses, lesions, tenderness or abnormalities.Eyes: Anicteric sclera. Pupils are equally round and reactive to light.Extraocular movements are intact. .Ears: External ears normal, canals clear.Nose/Sinuses: Nares normal, septum midline, mucosa normal, no drainage orsinus tenderness.Oropharynx: Lips, mucosa, and tongue normal, gums normal, oropharynxnormal. Poor dietitian.Neck: Supple, no adenopathy; thyroid symmetric, normal size, no bruits.Lungs: Lungs clear to auscultation. No wheezing, rhonchi, rales, distantbreath sounds throughout..Heart: RRR without murmur, gallop, or rubs. No ectopy.Abdomen: Normal abdominal exam, Abdomen soft, non-tender. Bowel soundsnormal. No masses, organomegaly.Extremities: No deformities, edema, skin discoloration.Musculoskeleta l: Spine range of motion normal. Muscular strength intact,No joint swelling, deformity, or tenderness.Peripheral Pulses: Normal.Neurologic: Gait normal. Reflexes normal and symmetric. Sensation to lighttouch and crainal nerves 2-12 intact..Genitalia: Normal, Penis normal. No urethral discharge. Scrotum normal topalpation. No hernia. circumcised.Rectal: Normal exam. Prostate enlarged but firm smooth capsule.Health Maintenance ListTETANUS due on 1966LIPID SCREEN due on 1990HEPATITIS C SCREENING due on 1999DIABETES SCREEN due on 2000PROSTATE CANCER SCREENING DISCUSSION due on 2005ZOSTAVAX due on 2015COLORECTAL CANCER SCREENING,SEE MODIFIER due on 01/10/2024INFLUENZA CompletedData reviewedA/P(Z00.00) Medicare annual wellness visit, subsequent (primary encounterdiagnosis)Comment:P [place]: see below(J44.9) Chronic obstructive pulmonary disease, unspecified COPD type (HCC)Comment:Plan: patient to cont inhalers and [facility] with [facility](M41.9) Scoliosis of lumbosacral spine, unspecified scoliosis typeComment:Plan: stable.(Z87.891) Ex-smokerComment:Plan: patient to continue to abstain.(N40.0) Benign prostatic hyperplasia without lower urinary tract symptomsComment:Plan: no clinically stable(Z13.6) Encounter for screening for cardiovascular disordersComment:Plan: check LIPID PANEL BASIC(Z13.1) Encounter for screening for diabetes mellitusComment:Plan: check GLUCOSE FASTING BLD(N42.9) Prostate disorderComment:Plan: check PSA/PROSTSPECAG DIAGPatient to f/u 1 year for WAE Time with patient face to face was 30 min for extensive exam and 10 minfor medicare wellness. Normal [facility] Vital Signs Date Time Vital Sign Value Performing Clinician Faci lity 10-12-2022 18:14-0500 Diastolic Blood Pressure Non-Invasive 96 1 LASHAWN GUTIERRES MD [facility] 10-12-2022 18:14-0500 Heart rate 90 /min LASHAWN GUTIERRES MD [facility] 10-12-2022 18:14-0500 Respiratory rate 18 /min LASHAWN GUTIERRES MD [facility] 10-12-2022 18:14-0500 Systolic Blood Pressure Non-Invasive 157 1 LASHAWN GUTIERRES MD [facility] 10-12-2022 14:36-0500 Body temperature 99.5 [degF] LASHAWN GUTIERRES MD [facility] 10-12-2022 14:36-0500 Body weight 68.9 kg LASHAWN GUTIERRES MD [facility] 10-12-2022 14:36-0500 Diastolic Blood Pressure Non-Invasive 92 1 LASHAWN GUTIERRES MD [facility] 10-12-2022 14:36-0500 Heart rate 108 /min LASHAWN GUTIERRES MD [facility] 10-12-2022 14:36-0500 Respiratory rate 20 /min LASHAWN GUTIERRES MD [facility] 10-12-2022 14:36-0500 Systolic Blood Pressure Non-Invasive 163 1 LASHAWN GUTIERRES MD [facility] Encounters Encounter Date Encounter Type Care Provider Facility Start: 11-05-2023 ambulatory GEOVANNA BALL Facil ity:[facility] Start: 11-05-2023 End: 11-05-2023 ambulatory [facility] Work Phone: Start: 11-05-2023 End: 11-05-2023 Patient encounter procedure [facility]-Cat Scan, [facility] Work Phone: Start: 10-12-2022 End: 10-12-2022 Emergency department patient visit [facility] Facility: Start: 10-12-2022 End: 10-12-2022 Emergency department patient visit LASHAWN GUTIERRES MD [facility] Start: 05-19-2017 End: 05-20-2017 Ambulatory CIERA LAMAR [facility] [place] Procedures Date Procedure Procedure Detail Performing Clinician Start: 11-05-2023 CT of chest without contrast Payers Date Payer Category Payer Self-pay 2023 Unknown [id number] 2022 Unknown [id number] 1955 Unknown [id number] Private Health Insurance [facility] [place] 18 [id number] Unknown [id number] Social History Date Type Detail Facility Tobacco smoking status [facility] Start: 1955 Sex Assigned At Male A [facility] Start: 10-02-2017 [facility] Clinical Note 10-12-2022 Note Date & Type Note Facility 10-12-2022 Note ORIGINAL EXAMINATION: ONE XRAY VIEW OF THE CHEST TECHNIQUE: AP upright COMPARISON: None HISTORY: ORDERING SYSTEM PROVIDED HISTORY: Reason for Exam: chest pain FINDINGS: Support devices: None Cardiomediastinal: The heart is normal in size. Lungs: Mild pulmonary hyperinflation likely on the basis of upper lobe predominant emphysema. Bilateral lower lobe parenchymal opacities without consolidation noted. No evidence of pulmonary edema or a pleural effusion. Pneumothorax: None. Osseous: No acute osseous pathology. IMPRESSION: Bilateral lower lobe parenchymal opacities. In the absence of prior imaging studies considerations include acute (infectious/inflammatory) and chronic change (fibrosis and/or interstitial lung disease). Emphysema. Interpreted by: Farhad Armando MD Preliminary Report By: Farhad Armando MD Electronically signed By Farhad Armando MD Dictated Date: 10/12/2022 3:21:37 PM Prelim Date: 10/12/2022 3:23:33 PM Sign Date: 10/12/2022 3:23:33 PM Ordering Provider: [facility] Clinical Note 10-12-2022 Note Date & Type Note Facility 10-12-2022 Note ORIGINAL EXAMINATION: ONE XRAY VIEW OF THE CHEST TECHNIQUE: AP upright COMPARISON: None HISTORY: ORDERING SYSTEM PROVIDED HISTORY: Reason for Exam: chest pain FINDINGS: Support devices: None Cardiomediastinal: The heart is normal in size. Lungs: Mild pulmonary hyperinflation likely on the basis of upper lobe predominant emphysema. Bilateral lower lobe parenchymal opacities without consolidation noted. No evidence of pulmonary edema or a pleural effusion. Pneumothorax: None. Osseous: No acute osseous pathology. IMPRESSION: Bilateral lower lobe parenchymal opacities. In the absence of prior imaging studies considerations include acute (infectious/inflammatory) and chronic change (fibrosis and/or interstitial lung disease). Emphysema. Interpreted by: Farhad Armando MD Preliminary Report By: Farhad Armando MD Electronically signed By Farhad Armando MD Dictated Date: 10/12/2022 3:21:37 PM Prelim Date: 10/12/2022 3:23:33 PM Sign Date: 10/12/2022 3:23:33 PM Ordering Provider: [facility] Evaluation + Plan note Note Date & Type Note Facility Evaluation + Plan note No data available for this section [facility] Evaluation note Note Date & Type Note Facility Evaluation note No assessment information availa christiano [facility] Work Phone: Hospital Discharge instructions Note Date & Type Note Facility Hospital Discharge instructions No data available for this section [facility] Summary Purpose Family History No Family History Records FoundNo Family History Records FoundNo Family History Records Found Advance Directives Advance Directive Response Recorded Date/ Time Living Will No October 02 018 11:54am Power of Real Estate Branch Manager No October 02, 2017 11:54am Chief Complaint and Reason for Visit Chief Complaint SOB COUGH Additional Source Comments (unrecognized sect ion and content) No Status Records FoundNo Status Records FoundNo Status Records Found INFORMATION SOURCE (unrecogn ized section and content) DATE CREATED AUTHOR 02/01/2018 [facility] DATE CREATED AUTHOR AUTHOR'S ORGANIZ ATION 10/23/2022 [facility] ([place]) DATE CREATED AUTHOR AUTHOR'S ORGANIZ ATION 11/07/2023 [facility] Care Team (unrecognized sect ion and content) Care Team Personnel Name: [place], [facility] Position: Physician Member Role: Primary Care Physician Address: Address: [address] [place], [place] [id number] Name: LASHAWN SULTANA PA-C Position: ED Physician Patient Services Representative Member Role: ELAINE HYLTON Address: Address: [address] [place] [id number] Care Teams (unrecognized sec tion and content) Team Status: Active Member Role Status Dates [facility] Family Provider Active [facility] Primary Care Provider Active Team Status: Inactive Member Role Status Dates [facility] Primary Care Provider Active LAMINE ISNGER Attending Provider, Referring Provider Active Goals (unrecognized section and content) Goals may be documented in a n alternate section FOR RECORDS PERTAINING TO PATIENTS WHO ARE OR HAVE BEEN ENROLLED IN A CHEMICAL DEPENDENCY/SUBSTANCEABUSE PROGRAM, SOME INFORMATION MAY BE OMITTED. This clinical summary was aggregated from multiple sources. Caution should be exercised in using it in the provision of clinical care. This summary normalizes information from multiple sources, and as a consequence, information in this document may materially change the coding, format and clinical context of patient data. In addition, data may be omitted in some cases. CLINICAL DECISIONS SHOULD BE BASED ON THE PRIMARY CLINICAL RECORDS. [facility]. provides no warranty or guarantee of the accuracy or completeness of information in this document.
[2025-02-03] MEDS: Morphine 4 MG/ML Syringe IV (22:55)
[2025-02-03] MEDS: 0.9% Normal Saline (500mL Bag) 500 ML 999 ML IV (22:55)
[2025-02-03] MEDS: Ondansetron 4 MG/2 ML Vial IV (22:55)
[2025-02-03 23:04] LABS: Absolute Lymphocyte Count 0.71 X10^3/uL (0.83-4.51); Absolute Neutrophil Count 11.3 X10^3/uL (2.0-7.7); Basophil# 0.05 X10^3/uL; Basophil% 0.4 % (0-1); Eosinophil# 0.21 X10^3/uL; Eosinophils% 1.6 % (0-5); Hematocrit 42.9 % (40-54); Hemoglobin 14.1 g/dL (13.0-16.5); Lymphocyte # 0.71 X10^3/ul (0.83-4.51); Lymphocyte % 5.4 % (19-41); Mean Corp Hgb Conc 32.9 g/dL (32-36); Mean Corpuscular Hgb 30.5 pg (27.0-32.0); Mean Corpuscular Volume 92.7 fL (80-94); Monocyte# 0.82 X10^3/uL; Monocyte% 6.2 % (0-10); NRBC Flagged by Analyzer 0 % (0-5); Neutrophil # 11.29 X10^3/uL (2.7-7.7); Neutrophil % 85.9 % (47-70); Platelet Count 261 K/mm3 (150-450); RBC Distribution Width CV 12.9 % (11.6-14.6); RBC Distribution Width SD 43.5 fl (35.1-43.9); Red Blood Count 4.63 M/mm3 (4.6-6.2); White Blood Count 13.1 K/mm3 (4.4-11.0)
[2025-02-03 23:15] VITALS: BP 172/114; PULSE 91; RESP 17; TEMP 36.9; O2SAT 95
[2025-02-03 23:47] LABS: Anion Gap 12 (5-15); BUN 19 mg/dL (4-19); Calcium,Total 9.5 mg/dL (7.6-11.0); Carbon Dioxide 26.9 mmol/L (21.0-32.0); Chloride 103 mmol/L (98-108); Creatinine, Serum 1.33 mg/dL (0.70-1.20); EST Glomerular Filtration Rate 58 (>60); Estimated Creatinine Clearance 52.42 ml/min (50-250); Glucose 131 mg/dL (70-99); Magnesium 2.3 mg/dL (1.5-2.2); Potassium 3.9 mmol/L (3.3-5.1); Sodium Level 142 mmol/L (133-145)
[2025-02-04] VITALS: BP 190/102; PULSE 93; RESP 18; TEMP 36.9; O2SAT 93
[2025-02-04] MEDS: Ketorolac 15 MG/ML Vial IV (00:03)
[2025-02-04] MEDS: 0.9% Normal Saline (500mL Bag) 500 ML 999 ML IV (00:03)
[2025-02-04 00:40] LABS: Mucous, Urine 0 SEEN /hpf (<or=2+)
[2025-02-04 00:45] LABS: Color, Urine Yellow (Yellow); Glucose, Dipstick Normal (Normal); Ketone-Dipstick Negative (Negative); Leukocyte Esterase-Dipstick Negative /ul (Negative); Nitrite-Dipstick Negative (Negative); Occult Blood-Urine 150 /ul (Negative); Protein-Dipstick 15 mg/dl (Negative); Urine Bilirubin Dipstick Negative (Negative); Urine Clarity Clear (Clear); Urine Urobilinogen Normal (Normal); Urine pH 6.5 (5.0 - 8.0)
[2025-02-04 01:00] VITALS: BP 172/99; PULSE 86; RESP 22; TEMP 36.9; O2SAT 94
[2025-02-04 01:22] LABS: Bacteria RARE /hpf (None Seen); Red Blood Cells-Urine > 100 SEEN /hpf (0-5); Squamous Epithelial Cells - UA 0-5 SEEN /hpf (0-5); White Blood Cells 0-5 SEEN /hpf (0-5)
--- NOTE | 2025-02-04 01:32 | ED.RN ---
PT DOES NOT KNOW WHAT HOME MEDICATIONS ARE.
--- NOTE | 2025-02-04 01:39 | EX.ED.DYSGE1 ---
HPI History of Present Illness Chief Complaint: Shortness of Breath Informant: patient Narrative Narrative: Patient is a 69-year-old male with past medical history of hypertension and COPD. He states he wears 2 to 4 L nasal cannula 01/03. He reports in the last day he has been having intermittent left-sided abdominal pain. He states he initially thought it was due to constipation so he took a laxative and after having a bowel movement reportedly felt better. However the pain then returned and once that spikes he reports feeling nauseous and short of breath. He denies any hematuria or dysuria but because of the recurrent pain he presents for evaluation [facility] Medical History (Updated 02/04/25 @ 06:[address] Demetrio Do DO) HTN (hypertension) COPD (chronic obstructive pulmonary disease) Home Medications ?Medication ?Instructions ?Recorded ?Last Taken ?Type cephalexin 500 mg capsule 500 mg PO BID 7 days #14 caps 02/04/25 Unknown Rx ketorolac 10 mg tablet 10 mg PO 4X/DAY PRN pain 5 days 02/04/25 Unknown Rx #20 tabs oxycodone-acetaminophen 5 mg-325 1 tab PO Q6H PRN pain 5 days #20 02/04/25 Unknown Rx mg tablet (Percocet) tabs tamsulosin 0.4 mg capsule (Flomax) 0.4 mg PO DAILY 14 days #14 caps 02/04/25 Unknown Rx Allergy/AdvReac Type Severity Reaction Status Date / Time codeine Allergy Other Verified 02/03/25 22:12 Surgical History (Updated 02/04/25 @ 01:[address] Juju Duran MD) H/O hernia repair Social History Smoking Status: Former smoker ROS ROS ED Constitutional Constitutional ED: Denies chills or fever(s) Eyes Eyes: Denies change in vision ENT ENT ED: Denies sore throat Cardiovascular Cardiovascular: Denies chest pain Respiratory/Chest Respiratory/Chest: Reports dyspnea; Denies cough Gastrointestinal Gastrointestinal: Reports abdominal pain, constipation and nausea; Denies diarrhea or vomiting Genitourinary Genitourinary ED: Denies dysuria or hematuria Musculoskeletal Musculoskeletal: Denies back pain Integumentary Denies rash Neurologic Neurologic: Denies headache(s) Hematologic/Lymphatic Hematologic/Lymphatic: Denies easy bleeding or easy bruising EXAM Physical Exam Const Vital Signs: 02/03/25 22:13 02/03/25 22:16 02/03/25 22:16 Temperature 98.4 F 98.4 F Temperature Source Oral Oral Pulse Rate 92 101 H Respiratory Rate 15 15 Respiratory Effort Short of Breath Respiratory Depth Normal Respiratory Pattern Tachypnea Blood Pressure 195/119 H 195/119 H Blood Pressure Mean 144 144 Pulse Ox 94 94 Oxygen Delivery Method Nasal Cannula Nasal Cannula Nasal Cannula Oxygen Flow Rate (L/min) 2 2 2 02/03/25 23:15 02/04/25 00:00 02/04/25 01:00 Temperature 98.4 F 98.4 F 98.4 F Temperature Source Oral Oral Oral Pulse Rate 91 93 86 Respiratory Rate 17 18 22 H Respiratory Effort Respiratory Depth Respiratory Pattern Blood Pressure 172/114 H 190/102 H 172/99 H Blood Pressure Mean 133 131 123 Pulse Ox 95 93 94 Oxygen Delivery Method Nasal Cannula Nasal Cannula Nasal Cannula Oxygen Flow Rate (L/min) 2 3 2 02/04/25 02:00 02/04/25 03:39 02/04/25 06:01 Temperature 98.4 F Temperature Source Pulse Rate 78 78 72 Respiratory Rate 18 18 16 Respiratory Effort Respiratory Depth Respiratory Pattern Blood Pressure 187/100 H 187/100 H 162/94 H Blood Pressure Mean 129 129 116 Pulse Ox 96 96 97 Oxygen Delivery Method Nasal Cannula Nasal Cannula Oxygen Flow Rate (L/min) 2 2 Positive well nourished and well developed General Appearance ED: well developed; Negative for pallor HEENT HEENT Narrative: Normocephalic atraumatic No tongue or lip swelling no oral lesions no airway edema or compromise Eyes PERRL and EOMs intact bilaterally General Eye ED: Negative for scleral icterus Neck supple and no JVD Resp normal respiratory effort Resp Narrative: Breath sounds are diminished throughout with faint wheeze and rhonchi noted in the bilateral lower lobes consistent with COPD but no signs of respiratory distress Cardio regular rate and regular rhythm GI non-distended and no masses GI Narrative: Abdomen is soft and nondistended with normal active bowel sounds. There is pain on palpation along the left lateral mid abdomen without voluntary guarding or rigidity. No pulsatile mass or fluid wave noted Auscultation: normoactive bowel sounds Palpation: soft Back/Spine Back/Spine Narrative: Mild left CVA pain present Extremity normal to inspection Neuro oriented x3, CN's II-XII intact bilaterally and no sensory deficits noted Sensorium / Orientation: alert Motor Exam: strength 5/5 throughout Psych mental status grossly normal Skin no rashes or lesions noted General Skin Exam: Negative for jaundice or pallor MDM MDM MDM Narrative Medical decision making narrative: Patient arrived to the ER hypertensive but has a past medical history of this and otherwise was satting on his normal 2 L at 94 to 95%. With pain in the left side of the abdomen and recent bouts of constipation there is concern for diverticulitis. However patient could also have UTI/pyelonephritis or kidney stone. He reported feeling nauseous and short of breath but clarified that this only occurred once the pain spiked. Therefore my concern for underlying pneumonia or ACS is low. Basic labs were obtained as well as a CT scan with IV contrast. CT scan showed a kidney stone on the left side in the ureter causing mild hydroureteronephrosis which correlates with his history and exam. He does not have signs of acute kidney injury or urosepsis. He received IV fluids as well as morphine and Toradol and had resolution of his pain. Therefore at this time without NISHANT urosepsis or intractable pain there is no need for admission to the hospital and he is otherwise safe for outpatient follow-up with symptomatic care History & Record Review Discussion w/independent historian: Patient Lab Data Attestation: I reviewed the patient's lab results. Labs: Laboratory Results - last 24 hr 02/03/25 02/04/25 22:00 00:32 WBC 13.1 H RBC 4.63 Hgb 14.1 Hct 42.9 MCV 92.7 MCH 30.5 MCHC 32.9 RDW Std Deviation 43.5 RDW Coeff of Crystal 12.9 Plt Count 261 MPV 9.0 Immature Gran % (Auto) 0.500 Neut % (Auto) 85.9 H Lymph % (Auto) 5.4 L Williams % (Auto) 6.2 Eos % (Auto) 1.6 Baso % (Auto) 0.4 Absolute Neuts (auto) 11.3 H Absolute Lymphs (auto) 0.71 L Nucleated RBC % 0 Sodium 142 Potassium 3.9 Chloride 103 Carbon Dioxide 26.9 Anion Gap 12 BUN 19 Creatinine 1.33 H Estim Creat Clear Calc 52.42 Est GFR (MDRD) Non-Af 58 L BUN/Creatinine Ratio 14.0 Glucose 131 H Calcium 9.5 Magnesium 2.3 H Urine Color Yellow Urine Clarity Clear Urine pH 6.5 Ur Specific [place] 1.010 Urine Protein 15 H Urine Glucose (UA) Normal Urine Ketones Negative Urine Occult Blood 150 H Urine Nitrite Negative Urine Bilirubin Negative Urine Urobilinogen Normal Ur Leukocyte Esterase Negative Urine RBC > 100 SEEN Urine WBC 0-5 SEEN Ur Squamous Epith Cells 0-5 SEEN Urine Bacteria RARE Urine Mucus 0 SEEN Radiography Diagnostic Testing: Clinical Impression(s) from Imaging Studies Abdomen/Pelvis CT 02/03/25 22:36 IMPRESSION: 1. Obstructing stone within the left mid ureter with mild hydroureteronephrosis and delayed nephrogram. 2. Ground-glass opacities within the right lower lobe, which may reflect pneumonitis/pneumonia. Clinical correlation recommended. 3. Bibasilar pulmonary nodules. Follow-up with outpatient instructional paraprofessional recommended if not currently performed. Reading Location: [facility] Discharge Plan Triage Chief Complaint: Shortness of Breath Other Complaint: Abd Pain ED Provider: Demetrio Do Dx/Rx/DC Orders Clinical Impression: Kidney stone on left side, Renal colic, Hypertension, COPD (chronic obstructive pulmonary disease) Instructions: ED Kidney Stone with Pain Prescriptions: New tamsulosin [Flomax] 0.4 mg capsule 0.4 mg PO DAILY 14 Days Qty: 14 0RF oxycodone-acetaminophen [Percocet] 5-325 mg tablet 1 tab PO Q6H PRN (Reason: pain) 5 Days Qty: 20 0RF ketorolac 10 mg tablet 10 mg PO 4X/DAY PRN (Reason: pain) 5 Days Qty: 20 0RF cephalexin 500 mg capsule 500 mg PO BID 7 Days Qty: 14 0RF Primary Care Provider: [facility] Referrals: Josh Garcia MD [Med Staff - Active Staff] - [facility] [Primary Care Provider] - Activity Restrictions/Additional Instructions: Please take the Percocet and Toradol together up to 4 times a day for the next 5 days to help control pain. Use the Flomax once daily as directed to help open the ureter up and gives your body more room for the stone to pass. Take the cephalexin/antibiotic as directed to prevent any secondary infection from the kidney stone. Return to the ER if you develop a fever of 100.4 or higher or your pain is unbearable despite taking the prescribed medication. Print Language: Welsh Disposition Disposition: Home, Self Care
[2025-02-04 02:00] VITALS: BP 187/100; PULSE 78; RESP 18; O2SAT 96
[2025-02-04 03:39] VITALS: BP 187/100; PULSE 78; RESP 18; TEMP 36.9; O2SAT 96
[2025-02-04 06:01] VITALS: BP 162/94; PULSE 72; RESP 16; O2SAT 97
== END 2025-02-04 06:59 | disposition home or self-care (01) ==
PROVIDERS: Emergency Provider Emergency Medicine; Referring Provider Emergency Medicine; Visit Provider Emergency Medicine
DX: N13.2 Hydronephrosis with renal and ureteral calculous obstruction (principal); J44.9 Chronic obstructive pulmonary disease, unspecified; I10 Essential (primary) hypertension; Z99.81 Dependence on supplemental oxygen; Z79.899 Other long term (current) drug therapy; Z87.891 Personal history of nicotine dependence
CPT/HCPCS: 74177; 80048; 81001; 83735; 85025; 96361; 96374; 96375; 99285; Q9967; J2405